=== PATIENT | female | born 2000 | race Caucasian/White ===

== ENCOUNTER 2018-08-24 20:43 | Emergency (ER) | payer OTHER ==
[2018-08-24 20:59] VITALS: BP 109/77
--- NOTE | 2018-08-24 22:15 | UC ---
Laceration HPI - HPI Summary HPI Summary: Patient is a 18-year-old female who presents to the for laceration to right index finger that occurred this evening. Patient is a student [employer]. Patient states she was reaching through a drawer when she did not realize there were shaving razors in drawer and once caught her finger. She has no past medical history. Immunizations are up-to-date. Symptoms are mild in severity. Patient state wound was bleeding profusely and she saw the EMT on campus and was referred to the trunk. - History Of Current Complaint Chief Complaint: UCLaceration Stated Complaint: FINGER LACERATION Time Seen by Provider: 08/24/18 21:05 Hx Obtained From: Patient Hx Last Menstrual Period: 08/08/18 Pain Intensity: 0 Pain Scale Used: 0-10 Numeric - Allergies/Home Medications Allergies/Adverse Reactions: Allergies Allergy/AdvReac Type Severity Reaction Status Date / Time amoxicillin Allergy Rash Verified 08/24/18 21:00 cefprozil Allergy Rash Verified 08/24/18 21:00 Home Medications: Home Medications Ibuprofen TAB* [Motrin TAB* 400 MG] 400 mg PO Q6H PRN 08/24/18 [History Confirmed 08/24/18] Sertraline* [Zoloft*] 75 mg PO DAILY 08/24/18 [History Confirmed 08/24/18] traZODone TAB* [Desyrel TAB*] 50 mg PO BEDTIME 08/24/18 [History Confirmed 08/24] PMH/Surg Hx/FS Hx/Imm Hx Previously Healthy: Yes - Surgical History Surgical History: None - Family History Known Family History: Positive: Non-Contributory - Social History Occupation: Student Lives: Dormitory/Roommates Alcohol Use: None Substance Use Type: None Smoking Status (MU): Never Smoked Tobacco Review of Systems All Other Systems Reviewed And Are Negative: Yes Skin: Positive: Other - laceration to 2nd finger on left hand Is Patient Immunocompromised?: No Physical Exam Triage Information Reviewed: Yes Appearance: Well-Appearing - Pt. sitting on exam table in NAD. Vital Signs: Initial Vital Signs Temp 98.1 F 08/24/18 20:54 Pulse 77 08/24/18 20:54 Resp 16 08/24/18 20:54 BP 109/77 08/24/18 20:54 Pulse Ox 100 08/24/18 20:54 Vital Signs Reviewed: Yes Eyes: Positive: Conjunctiva Clear Neck: Positive: Supple Musculoskeletal: Positive: Other: - Noted to the distal tip of 2nd digit on left hand there is a <1cm superficial abrasion without bleeding. Full ROM of digit. Neurological: Positive: Alert Psychological Exam: Normal Laceration Repair - Laceration Repair 1 : No Repair Necessary - superficial avulsion Laceration Course/Dx - Course/Dx Course Of Treatment: Patient presenting with superficial fingertip avulsion. No active bleeding. Wound was dressed. Advised to keep wound clean and dry. Can follow up with [facility] if needed. To apply pressure and elevate if bleeding returns. Return to the urgent care for signs of infection. Pt. understands and agrees with plan. - Differential Dx - Laceration/Wound Differental Diagnoses: Avulsion, Laceration, Tendon Laceration - Diagnosis Provider Diagnosis: Finger avulsion Discharge - Sign-Out/Discharge Documenting (check all that apply): Patient Departure All imaging exams completed and their final reports reviewed: No Studies - Discharge Plan Condition: Good Disposition: HOME Patient Education Materials: Skin Avulsion (ED) Referrals: [facility] [Outside] Additional Instructions: Keep wound clean and dry Hold pressure and elevate finger if bleeding returns Return to for redness, swelling or drainage from wound - Billing Disposition and Condition Condition: GOOD Disposition: Home
== END 2018-08-24 21:20 | disposition home or self-care (01) ==
LOC: UCEAST 20:43
DX: S61.211A Laceration without foreign body of left index finger without damage to nail, initial encounter (principal); W26.8XXA Contact with other sharp object(s), not elsewhere classified, initial encounter; Y92.9 Unspecified place or not applicable; Z88.1 Allergy status to other antibiotic agents; Z88.0 Allergy status to penicillin
CPT/HCPCS: 99202; G0463